=== PATIENT | male | born 1985 | race Caucasian/White ===

== ENCOUNTER 2016-05-02 15:02 | Inpatient (IN) | payer OTHER ==
[~2016-05-02] VITALS: Ht 182.9 cm; Wt 68.3 kg
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
[~2016-05-02 15:02] MED LIST: CATAPRES0.1 MG PO; CYMBALTA60 MG PO; KEFLEX500 MG PO; LYRICA 50MG CAP50 MG PO; MOBIC15 MG PO; NORCO 10-325 T1 EACH PO; OMEPRAZOLE40 MG PO; TREXAN (REVIA)50 MG PO; TYLENOL EXTRA500 MG PO
[2016-05-02 16:16] LABS: BASOPHIL % 0.2 %; HEMATOCRIT 48.2 % (37.0-53.0); HEMOGLOBIN 16.7 g/dL (12.0-17.0); IMMATURE GRANULOCYTE # 0.1 K/uL (0.0-0.3); IMMATURE GRANULOCYTE % 0.5 %; LYMPHOCYTE % 8.9 %; MCH 29.5 pg (27.0-34.0); MCHC 34.6 gm/dL (32.0-36.5); MONOCYTE # 0.4 K/uL (0.0-1.0); MONOCYTE % 3.8 %; MPV 10.5 fl (9.4-12.4); NEUTROPHIL # (ANC) 9.5 K/uL (1.4-9.0); NEUTROPHIL % 86.6 %; NRBC % 0 /100WBC (0-0.00); PLATELET COUNT 268 K/uL (150-450); RBC 5.67 M/uL (4.00-6.00); RDW-CV 11.9 % (11.9-14.6)
[2016-05-02 16:26] LABS: BILIRUBIN URINE NEGATIVE (NEGATIVE); BLOOD URINE NEGATIVE /UL (NEGATIVE); COLOR URINE YELLOW (YELLOW); GLUCOSE URINE NEGATIVE (NEGATIVE); KETONE URINE 50 mg/dL (NEGATIVE); LEUKOCYTES URINE 25 /UL (NEGATIVE); NITRITE URINE NEGATIVE (NEGATIVE); PROTEIN URINE 30 mg/dL (NEGATIVE); SPEC GRAVITY URINE 1.015 (1.003-1.035); TURBIDITY URINE CLEAR (CLEAR); UROBILINOGEN URINE NORMAL (NORMAL)
[2016-05-02 16:35] LABS: ALBUMIN 4.8 gm/dL (3.5-5.0); ALK PHOS 81 IU/L (33-138); ALT 19 IU/L (12-78); ANION GAP 14.3 (10.0-19.0); AST 10 IU/L (10-40); BLOOD UREA NITROGEN 21 mg/dL (6-24); CALCIUM 9.8 mg/dL (8.5-10.5); CHLORIDE 98 mMol/L (96-110); CO2 31 mMol/L (22-32); CREATININE 1.1 mg/dL (0.6-1.3); ESTIMATED GFR (MDRD EQUATION) > 60; POTASSIUM 3.3 mMol/L (3.7-5.1); SODIUM 140 mMol/L (135-145); TOTAL BILIRUBIN 1.3 mg/dL (0.0-1.5); TOTAL PROTEIN 8.2 g/dL (6.0-8.4)
[2016-05-02 16:36] LABS: AMORPHOUS URINE 1+ (NEGATIVE); BACTERIA URINE FEW (NEGATIVE); MUCUS URINE 2+ (NEGATIVE); RBC URINE 0-2 #/HPF (NEGATIVE); WBC URINE 0-2 #/HPF (NEGATIVE)
[2016-05-02 16:41] LABS: INR - (THERAPEUTIC) 1.1 (0.9-1.1); PROTIME 11.5 SECONDS (9.6-11.1); PTT 24 SECONDS (25-32)
[2016-05-02 16:43] LABS: BARBITURATE NEGATIVE (NEGATIVE); COCAINE NEGATIVE (NEGATIVE)
[2016-05-02 16:47] LABS: AMPHETAMINE NEGATIVE (NEGATIVE); OPIATES POSITIVE (NEGATIVE)
--- NOTE | 2016-05-03 04:13 | NUR ---
Significant Event: Follow up: A/OX3. VSS. PATIENT TRANSFERED FROM PACU TO ROOM 3303 AT 2145. RIGHT FOOT ELEVATED. ROXICODONE 5MG Q 3 HOURS AND SCHEDULED IV TYLENOL FOR PAIN MANAGEMENT. WBAT. TOLERATING FLUIDS. MICHELLE PETERS.
--- NOTE | 2016-05-03 09:39 | NUR ---
Pt not very compliant about keeping ice to foot. He also go up and amb to BR on own and didn't call. Was to have wooden shoe on when up. Pt reinstructed on calling for assist and needing shoe on.
--- NOTE | 2016-05-03 15:54 | NUR ---
SPOKE TO PATIENT REGARDING CM AND OUR ROLE. PATIENT LIVES IN OWN HOME WITH SPOUSE, HE IS PLANNING ON RETURNING THERE ONCE HE IS READY FOR DISCHARGE. PATIENT TELLS ME THAT HIS SPOUSE IS WILLING TO LEARN HOW TO DO THE DRESSING CHNAGES TO HIS FOOT. HE THINKS THAT HE CAN DO IT IF SHE IS NOT ABLE TO DO IT. PRESENTED TO PATIENT THE OPTION OF HHC AND HE DECLINES THIS. HE IS HOPING THAT HE WILL BE DISCHARGE HOME TOMORROW. WILL CONT TO FOLLOW NEEDED.
--- NOTE | 2016-05-03 16:31 | NUR ---
Pt alert and oriented. He has been up x1 without shoe on earlier, up with walker and wooden shoe on x1 and otherwise in bed. Keeps Rt leg elevated at times but moves around a lot in bed. Doesn't keep ice on well. Dressing changed today by Dr Urbina. Pt has closed incision top of foot and open area of exit wound bottom (ball) of foot. Small opening is packed with about 5 inches of iodoform gauze. Pt has had roxicodone x3, last at 1625 for pain rated at 5. Also IV ofirmev x4 doses starting last noc at 2100. Has had 4000 mg tylenol until 9 pm tonight so norco and percocet not given. Was started on methadone and neurontin and pain is better. Had been up to 8-[address] Godinez would like to watch dressing change so she can do it at home. Pt will be on ATB IV until tomorrow then probably home on oral per Dr Godinez. Psych consult not yet done but ordered. Pt states numbness Rt foot. Toes warm, chang well and has good sensation to touch. Uses IS at times and up to 1750. Ate one meal so far today. Had xray of foot this afternoon.
--- NOTE | 2016-05-04 02:42 | NUR ---
Significant Event: Pt alert and oriented. Up with hard shoe and walker with SBA 1. Very restless. Toes are still numb and tingling, able to move somewhat. Pt had been non compliant with the ice, but is now using the ice at all times. Percocet for breakthrough pain. Has had 2 doses, along with 1 dose of dilaudid which has been d/c'd. Voiding well and drinking well. IV abx, last dose at 1500. Should go home today. Follow up:
--- NOTE | 2016-05-04 10:09 | NUR ---
[id number] supervised [facility] Staffing Specialist.
[2016-05-04] MEDS ORDERED: DOLOPHINE10 MG PO (10:41)
[2016-05-04] MEDS ORDERED: KEFLEX500 MG PO (10:43)
[2016-05-04] MEDS ORDERED: ASPIRIN325 MG PO (10:43)
--- NOTE | 2016-05-04 15:10 | NUR ---
Patient was discharged home in stable condition. IV was discontinued. Instructions given on new medication, dressing changes, to follow up at Dr. Godinez's office on the , and DVT prevention. Verbal understanding stated. LEAN MANUFACTURING LEADER transported patient to his 's personal vehicle via wheelchair.
== END 2016-05-04 18:36 | disposition disaster alternative care site (69) | DRG 501 ==
LOC: GACC 15:02 → G3N 16:27 → GPSCC 16:27 → G3N 20:29
PROVIDERS: Emergency Medicine; ADMIT Orthopaedic Surgery
PROC: 3E0234Z Introduction of Serum, Toxoid and Vaccine into Muscle, Percutaneous Approach (ICD-10-PCS; principal; 2016-05-02)
PROC: 0JDQ0ZZ Extraction of Right Foot Subcutaneous Tissue and Fascia, Open Approach (ICD-10-PCS; principal; 2016-05-02)
DX: S92.331B Displaced fracture of third metatarsal bone, right foot, initial encounter for open fracture (principal); F33.40 Major depressive disorder, recurrent, in remission, unspecified; F11.10 Opioid abuse, uncomplicated; M54.9 Dorsalgia, unspecified; F17.210 Nicotine dependence, cigarettes, uncomplicated; Y23 Rifle, shotgun and larger firearm discharge, undetermined intent; Y93.E9 Activity, other interior property and clothing maintenance; Y92.019 Unspecified place in single-family (private) house as the place of occurrence of the external cause; Z23 Encounter for immunization; Z88.8 Allergy status to other drugs, medicaments and biological substances; Z79.899 Other long term (current) drug therapy
CPT/HCPCS: A9270; G0480; J0131; J0690; J1100; J1170; J2250; J2405; J7030

== ENCOUNTER → 2016-05-15 | Outpatient (CLI) | payer OTHER ==
[~2016-05-15] MED LIST changes: +ASPIRIN325 MG PO; +DOLOPHINE10 MG PO
== END | disposition disaster alternative care site (69) ==
LOC: GRAD 08:00
DX: S92.331D Displaced fracture of third metatarsal bone, right foot, subsequent encounter for fracture with routine healing (principal)

== ENCOUNTER → 2016-06-13 | Outpatient (CLI) | payer OTHER | END | disposition disaster alternative care site (69) | LOC: GRAD 14:59 | DX: Z51.89 Encounter for other specified aftercare (principal); S92.331D Displaced fracture of third metatarsal bone, right foot, subsequent encounter for fracture with routine healing; X58.XXXD Exposure to other specified factors, subsequent encounter ==